=== PATIENT | female | born 1990 | race Caucasian/White ===

== ENCOUNTER 2018-02-21 10:47 | Outpatient (REF) | payer MEDICAID, SELFPAY ==
[2018-02-21 13:07] LABS: Anion Gap 11.8 mmol/L (3-11); BUN 13 mg/dL (7-18); CO2 25.2 mmol/L (21.0-32.0); CREATININE 0.83 mg/dL (0.55-1.02); Calcium 9.2 mg/dL (8.5-10.1); Chloride 105 mmol/L (98-107); Glucose 95 mg/dL (70-100); Potassium 5.1 mmol/L (3.5-5.1); Sodium 142 mmol/L (136-145)
== END 2018-02-21 11:07 ==
LOC: NCHCN 10:47
PROVIDERS: PCP Nurse Practitioner Family; Visit Provider Nurse Practitioner Family
DX: E87.1 Hypo-osmolality and hyponatremia (principal)
CPT/HCPCS: 80048

== ENCOUNTER 2019-10-31 15:23 | Outpatient (REF) | payer SELFPAY ==
[2019-11-07 03:23] LABS: SARS-CoV-2 RNA Undetected (Undetected); SARS-CoV-2 Specimen Source Nasopharynx
== END 2019-10-31 15:43 ==
LOC: NCHCN 15:23
PROVIDERS: PCP Nurse Practitioner Family; Visit Provider Nurse Practitioner Family
DX: Z20.828 Contact with and (suspected) exposure to other viral communicable diseases (principal)
CPT/HCPCS: U0003

== ENCOUNTER 2019-11-13 16:24 | Outpatient (REF) | payer SELFPAY ==
[2019-11-18 14:32] LABS: SARS-CoV-2 RNA Undetected (Undetected); SARS-CoV-2 Specimen Source Nasopharynx
== END 2019-11-13 16:44 ==
LOC: NCHCN 16:24
PROVIDERS: PCP Nurse Practitioner Family; Visit Provider Nurse Practitioner Family
DX: R50.9 Fever, unspecified (principal); Z11.59 Encounter for screening for other viral diseases
CPT/HCPCS: U0003

== ENCOUNTER 2019-11-23 15:59 | Outpatient (REF) | payer SELFPAY ==
[2019-11-23 16:30] LABS: HCT 37.8 % (36.0-46.0); HGB 12.3 g/dL (11.2-15.7); MCH 31.1 pg (27.0-33.0); MCHC 32.5 % (32.0-36.0); MCV 95.5 fL (80-95); MPV 9.6 fL (8.0-11.0); Platelet Count 333 10^3/uL (130-400); RBC 3.96 10^6/uL (3.93-5.22); RDW 12.1 % (11.7-14.6); RDW-SD 42.5 fL
[2019-11-23 16:43] LABS: ALT 34 U/L (14-59); AST 19 U/L (15-37); Albumin 4.1 g/dL (3.4-5.0); Alkaline Phosphatase 134 U/L (46-116); Anion Gap 9.3 mmol/L (3-11); BUN 9 mg/dL (7-18); Bilirubin, Total 0.3 mg/dL (0.2-1.0); CO2 28.7 mmol/L (21.0-32.0); CREATININE 0.72 mg/dL (0.55-1.02); Calcium 9.3 mg/dL (8.5-10.1); Chloride 102 mmol/L (98-107); Glucose 90 mg/dL (74-106); Potassium 4.2 mmol/L (3.5-5.1); Sodium 140 mmol/L (136-145); Total Protein 7.3 g/dL (6.4-8.2)
== END 2019-11-23 16:19 ==
LOC: NCHCN 15:59
PROVIDERS: PCP Nurse Practitioner Family; Visit Provider Physician Assistant
DX: R50.9 Fever, unspecified (principal)
CPT/HCPCS: 80053; 85027

== ENCOUNTER 2019-11-27 15:10 | Outpatient (REF) | payer SELFPAY ==
[2019-11-29 11:17] LABS: Lyme Ab w Rflx to Lyme Confirm Negative (Negative)
[2019-11-30 00:10] LABS: Anaplasma phagocytophilum Negative (Negative); B. miyamotoi PCR Negative (Negative); Babesia divergens/MO-1 Negative (Negative); Babesia duncani Negative (Negative); Babesia microti Negative (Negative); Ehrlichia chaffeensis Negative (Negative); Ehrlichia ewingii/canis Negative (Negative); Ehrlichia muris eauclairensis Negative (Negative)
== END 2019-11-27 15:30 ==
LOC: NCHCN 15:10
PROVIDERS: PCP Nurse Practitioner Family; Visit Provider Physician Assistant
DX: R53.83 Other fatigue (principal)
CPT/HCPCS: 87798; 86618

== ENCOUNTER 2020-02-28 09:36 | Outpatient (REF) | payer BC, SELFPAY ==
[2020-02-28 18:09] LABS: Calculated LDL 90 mg/dL (<100); Cholesterol 174 mg/dL (<200); HDL Cholesterol 71 mg/dL (40-60); Triglyceride 67 mg/dL (<150)
== END 2020-02-28 09:56 ==
LOC: NCHCN 09:36
PROVIDERS: PCP Nurse Practitioner Family; Visit Provider Nurse Practitioner
DX: R30.0 Dysuria (principal); Z13.89 Encounter for screening for other disorder
CPT/HCPCS: 80061; 87077; 87086; 87186

== ENCOUNTER 2020-08-11 20:40 | Outpatient (REF) | payer BC, SELFPAY | END 2020-08-11 20:41 | disposition home or self-care (01) | LOC: LBN 20:40 | PROVIDERS: PCP Nurse Practitioner Family; Visit Provider Nurse Practitioner Family | DX: N39.0 Urinary tract infection, site not specified (principal) | CPT/HCPCS: 87086 ==

== ENCOUNTER 2020-08-15 02:14 | Outpatient (CLI) | payer BC, SELFPAY ==
[2020-08-15 12:23] LABS: HCT 40.9 % (36.0-46.0); HGB 13.2 g/dL (11.2-15.7); MCH 31.3 pg (27.0-33.0); MCHC 32.3 % (32.0-36.0); MCV 96.9 fL (80-95); MPV 9.3 fL (8.0-11.0); Platelet Count 311 10^3/uL (130-400); RBC 4.22 10^6/uL (3.93-5.22); RDW 12.2 % (11.7-14.6); RDW-SD 43.6 fL
[2020-08-15 12:32] LABS: INR 0.9 (0.9-1.1)
[2020-08-15 13:09] LABS: ALT 30 U/L (14-59); AST 15 U/L (15-37); Albumin 3.9 g/dL (3.4-5.0); Alkaline Phosphatase 159 U/L (46-116); BUN 10 mg/dL (7-18); Bilirubin, Total 0.1 mg/dL (0.2-1.0); CREATININE 0.8 mg/dL (0.55-1.02); Calcium 9.4 mg/dL (8.5-10.1); Chloride 105 mmol/L (98-107); Glucose 103 mg/dL (74-106); Potassium 4.1 mmol/L (3.5-5.1); Sodium 142 mmol/L (136-145); Total Protein 7.1 g/dL (6.4-8.2)
== END 2020-08-15 02:15 | disposition home or self-care (01) ==
LOC: LBO 02:14
PROVIDERS: PCP Nurse Practitioner Family; Visit Provider Nurse Practitioner Family
DX: R00.0 Tachycardia, unspecified (principal); I49.9 Cardiac arrhythmia, unspecified
CPT/HCPCS: 36415; 80053; 85027; 85610

== ENCOUNTER 2020-08-15 12:26 | Outpatient (RCR) | payer BC, SELFPAY ==
--- NOTE | 2020-08-15 14:00 | HOLTER_ITS ---
APPROVED REPORT Exam Type: HOLTER MONITOR APPLICATION Reason for Test: paroxsymal tachycardia Patient Location: O Conclusion This is a 48-hour Holter monitor ordered for indication of tachycardia. The patient was in normal sinus rhythm for the majority of the recording with an average heart rate o f 100 bpm (57???150) There were no episodes of ventricular tachycardia nor any episodes of supraventricular tachycardia. There were 4 total PACs and no PVCs. There were no episodes of atrial fibrillation, no pauses greater than 3 seconds and no evidence of hi gh degree heart block. There were numerous patient recorded events all associated with sinus rhythm and sinus tachycardia.
== END 2020-08-22 23:59 | disposition home or self-care (01) ==
LOC: RT 12:26
PROVIDERS: PCP Nurse Practitioner Family; Visit Provider Nurse Practitioner Family
DX: R00.0 Tachycardia, unspecified (principal)
CPT/HCPCS: 93225; 93226

== ENCOUNTER 2022-01-22 10:40 | Outpatient (CLI) | payer SELFPAY ==
--- NOTE | 2022-01-22 09:45 | DI.RAD_ITS ---
Exam(s) XR LUMBAR SPINE COMPLETE EXAM: XR LUMBAR SPINE COMPLETE CLINICAL HISTORY: vertebral alignment M54.50 LOW BACK PAIN TECHNIQUE: COMPARISON: No exams were available for comparison FINDINGS: Five views were obtained. There is a minimal left convex thoracolumbar scoliosis which may be positi onal. The intervertebral disc spaces are well maintained. Minimal hypertrophic endplate changes are noted throughout the thoracic and lumbar spine. Facet joints appear well maintained as visualized. No evidence of spondylolysis or spondylolisthesis. No erosive or destructive lesion. IMPRESSION: Minimal degenerative endplate changes, no other significant findings. RADIATION DOSE DELIVERED: Total DLP
== END 2022-01-22 11:00 ==
LOC: DI 10:44
PROVIDERS: PCP Nurse Practitioner Family; Visit Provider Nurse Practitioner Family
DX: M47.814 Spondylosis without myelopathy or radiculopathy, thoracic region (principal)
CPT/HCPCS: 72110

== ENCOUNTER 2023-04-01 16:17 | Outpatient (REF) | payer BC, SELFPAY ==
[2023-04-01 20:56] LABS: *AMPHETAMINES SCREEN URINE Positive (Negative); *BARBITURATES SCREEN URINE Negative (Negative); *BENZODIAZEPINES SCREEN URINE Negative (Negative); Cannabinoids THC Negative (Negative); Cocaine Screen,Urine Negative (Negative); METHADONE URINE SCREEN Negative (Negative); OPIATES URINE SCREEN Positive (Negative)
[2023-04-01 21:00] LABS: Tricyclic Antidepressants Positive (Negative)
== END 2023-04-01 16:18 | disposition home or self-care (01) ==
LOC: LBN 16:17
PROVIDERS: PCP Nurse Practitioner Family; Visit Provider Nurse Practitioner Family
DX: F90.9 Attention-deficit hyperactivity disorder, unspecified type (principal)
CPT/HCPCS: 80307

== ENCOUNTER 2023-04-19 14:36 | Outpatient (CLI) | payer BC, SELFPAY ==
[2023-04-19 14:33] LABS: Hemoglobin A1C 5.6 % (<5.7)
[2023-04-19 14:50] LABS: ALT 35 U/L (14-59); AST 14 U/L (15-37); Alkaline Phosphatase 171 U/L (46-116); Anion Gap 7.3 mmol/L (3-11); BUN 10 mg/dL (7-18); Bilirubin, Total 0.1 mg/dL (0.2-1.0); CO2 27.7 mmol/L (21.0-32.0); CREATININE 0.8 mg/dL (0.55-1.02); Calcium 8.9 mg/dL (8.5-10.1); Calculated LDL 132 mg/dL (<100); Chloride 101 mmol/L (98-107); Cholesterol 225 mg/dL (<200); Estimated GFR 99.71 (mL/min/1.73m2); Glucose 100 mg/dL (74-106); HDL Cholesterol 66 mg/dL (40-60); Potassium 3.6 mmol/L (3.5-5.1); Sodium 136 mmol/L (136-145); Total Protein 7.7 g/dL (6.4-8.2); Triglyceride 135 mg/dL (<150)
[2023-04-19 15:00] LABS: *AMPHETAMINES SCREEN URINE Positive (Negative); *BARBITURATES SCREEN URINE Negative (Negative); *BENZODIAZEPINES SCREEN URINE Negative (Negative); Cannabinoids THC Negative (Negative); Cocaine Screen,Urine Negative (Negative); METHADONE URINE SCREEN Negative (Negative); OPIATES URINE SCREEN Negative (Negative)
[2023-04-19 15:01] LABS: Tricyclic Antidepressants Negative (Negative)
== END 2023-04-19 14:37 | disposition home or self-care (01) ==
LOC: LBO 14:36
PROVIDERS: PCP Nurse Practitioner Family; Visit Provider Nurse Practitioner Family
DX: Z00.00 Encounter for general adult medical examination without abnormal findings (principal); F90.8 Attention-deficit hyperactivity disorder, other type; F32.89 Other specified depressive episodes; Z79.899 Other long term (current) drug therapy; R79.89 Other specified abnormal findings of blood chemistry
CPT/HCPCS: 36415; 80053; 80061; 80307; 83036

== ENCOUNTER 2023-07-19 17:50 | Outpatient (REF) | payer OTHER, SELFPAY ==
[2023-07-19 20:29] LABS: Abs Immature Grans 0.01 10^3/uL (0.0-0.06); Absolute Basophil Count 0.04 10^3/uL (0.0-0.2); Absolute Eosinophil Count 0.06 10^3/uL (0.0-0.7); Absolute Lymphocyte Count 3.67 10^3/uL (1.2-3.4); Absolute Monocyte Count 0.44 10^3/uL (0.1-0.8); Absolute Neutrophil Count 2.72 10^3/uL (1.2-6.7); Basophils % 0.6; Eosinophils % 0.9; HCT 38.6 % (36.0-46.0); HGB 12.8 g/dL (11.2-15.7); Immature Grans % 0.1; Lymphocytes % 52.9; MCH 31.7 pg (27.0-33.0); MCHC 33.2 % (32.0-36.0); MCV 96 fL (80-95); MPV 9.6 fL (8.0-11.0); Monocytes % 6.3; Neutrophils % 39.2; Platelet Count 372 10^3/uL (130-400); RBC 4.04 10^6/uL (3.93-5.22); RDW 11.9 % (11.7-14.6); RDW-SD 42.1 fL; WBC 6.94 10^3/uL (4.4-10.8)
[2023-07-19 20:56] LABS: TSH (W/Ref FT4) 1.71 uIU/mL (0.36-3.74)
== END 2023-07-19 17:51 | disposition home or self-care (01) ==
LOC: LBN 17:50
PROVIDERS: PCP Nurse Practitioner Family; Visit Provider Nurse Practitioner Family
DX: E04.9 Nontoxic goiter, unspecified (principal)
CPT/HCPCS: 84443; 85025

== ENCOUNTER 2023-07-22 16:56 | Emergency (ER) | payer OTHER, SELFPAY ==
[2023-07-22 16:58] VITALS: BP 131/83; PULSE 116; RESP 18; TEMP 37; O2SAT 97
--- NOTE | 2023-07-22 17:30 | DI.CT_ITS ---
Exam(s) CT HEAD WO EXAM: CT HEAD WO CLINICAL HISTORY: worsening headache. TECHNIQUE: Imaging Protocol: Axial computed tomography images with coronal and sagittal reformatted images were created and reviewed COMPARISON: No exams were available for comparison FINDINGS: Ventricles and Extra axial spaces: Normal in size and morphology for the patient's age. Hemorrhage: None. Cerebral parenchyma: Normal. Midline shift: None. Brainstem/Cerebellum: Normal. Calvarium: Normal. Visualized Paranasal sinuses/Mastoids: Clear. Soft Tissues: Unremarkable. IMPRESSION: No acute intracranial process. RADIATION DOSE DELIVERED: Total DLP DATA REPOSITORY: All CT scans at this facility are submitted to the National Radiology Data Registry (NRDR) Dose Index Registry (DIR) with the [employer] (ACR). RADIATION OPTIMIZATION: All CT scans at this facility use at least one of these dose optimization te chniques: automated exposure control; mA and/or kV adjustment per patient size (includes targeted exa ms where dose is matched to clinical indication); or iterative reconstruction.
[2023-07-22 18:13] LABS: Abs Immature Grans 0.02 10^3/uL (0.0-0.06); Absolute Basophil Count 0.03 10^3/uL (0.0-0.2); Absolute Eosinophil Count 0.07 10^3/uL (0.0-0.7); Absolute Monocyte Count 0.64 10^3/uL (0.1-0.8); Absolute Neutrophil Count 5.66 10^3/uL (1.2-6.7); Basophils % 0.3; Eosinophils % 0.7; HCT 40.5 % (36.0-46.0); HGB 13.1 g/dL (11.2-15.7); Immature Grans % 0.2; MCH 31.5 pg (27.0-33.0); MCHC 32.3 % (32.0-36.0); MCV 97 fL (80-95); MPV 9.2 fL (8.0-11.0); Monocytes % 6.6; Neutrophils % 58.2; Platelet Count 355 10^3/uL (130-400); RBC 4.16 10^6/uL (3.93-5.22); RDW 11.8 % (11.7-14.6); RDW-SD 42.5 fL; WBC 9.72 10^3/uL (4.4-10.8)
[2023-07-22] MEDS: Dexamethasone 10 MG/ML VIAL IM (18:26)
[2023-07-22] MEDS: Prochlorperazine 10 MG/2 ML VIAL IM (18:26)
[2023-07-22 18:28] LABS: Bilirubin Negative (Negative); Blood Negative (Negative); Clarity Cloudy (Clear); Glucose Negative (Negative); Ketones Negative (Negative); Leukocyte Esterase Moderate (Negative); Nitrite Negative (Negative); Specific Gravity 1.025 (1.005-1.025); Urobilinogen 0.2 mg/dL (Up to 0.2)
[2023-07-22 18:28] LABS: ALT 40 U/L (14-59); AST 15 U/L (15-37); Alkaline Phosphatase 150 U/L (46-116); Anion Gap 9.6 mmol/L (3-11); BUN 12 mg/dL (7-18); Bilirubin, Total 0.2 mg/dL (0.2-1.0); CO2 27.4 mmol/L (21.0-32.0); CREATININE 0.7 mg/dL (0.55-1.02); Calcium 9.1 mg/dL (8.5-10.1); Chloride 106 mmol/L (98-107); Estimated GFR 117.04 (mL/min/1.73m2); Glucose 103 mg/dL (74-106); Potassium 4.5 mmol/L (3.5-5.1); Sodium 143 mmol/L (136-145); Total Protein 7.5 g/dL (6.4-8.2)
[2023-07-22 18:31] VITALS: BP 131/83; PULSE 116; RESP 18; TEMP 37; O2SAT 97
[2023-07-22 18:35] LABS: Bacteria Moderate HPF (Negative); Casts Negative LPF (Negative); Crystals Negative HPF (Negative); Epithelial Cells Moderate HPF (Negative); Mucus Moderate (Negative); RBC Negative HPF (0-2)
[2023-07-22 18:36] LABS: C & S Indicated? No/Sq. Contamination
[2023-07-22 18:49] LABS: COVID-19 PCR Negative (Negative); Influenza A PCR Negative (Negative); Influenza B PCR Negative (Negative); RSV PCR Negative (Negative); Source Nasopharynx
[2023-07-22] MEDS: SUMAtriptan 6 MG/0.5 ML VIAL SC (19:44)
--- NOTE | 2023-07-22 19:47 | DI.VRAD_ITS ---
PROCEDURE INFORMATION: Exam: CT Head Without Contrast Exam date and time: 07/22/2023 7:15 PM Age: 33 years old Clinical indication: Pain; Headache; Additional info: Worsening headache TECHNIQUE: Imaging protocol: Computed tomography of the head without contrast. COMPARISON: No relevant prior studies available. FINDINGS: Brain: Normal. No hemorrhage. Unremarkable white matter. No mass effect. Cerebral ventricles: No ventriculomegaly. Paranasal sinuses: Visualized sinuses are unremarkable. No fluid levels. Mastoid air cells: Visualized mastoid air cells are well aerated. Bones/joints: Unremarkable. No acute fracture. Soft tissues: Unremarkable. IMPRESSION: No evidence for acute intracranial abnormality. Dictated and Authenticated by: Shea Ruby MD. Ordering:CHAD Agarwal MD
--- NOTE | 2023-07-22 20:14 | ED.GENADUL_ITS ---
Discharge Plan Disposition Patient Disposition: Home Condition: Stable Discharge Details Clinical Impression: Headache Primary Care Provider: Rosalina Concepcion ED Provider: Any Neri Home Meds and New Rx's Prescriptions: New sumatriptan succinate [Imitrex] 25 mg tablet 25 mg PO ONCE Qty: 7 0RF Rx Instructions: may repeat once after at least 2 hours metoclopramide HCl [Reglan] 10 mg tablet 10 mg PO Q6H PRNQty: 10 0RF Continued lidocaine 4 % adhesive patch,medicated 1 patch topical DAILY PRN (Reason: pain) Qty: 30 0RF Rx Instructions: Apply 1 patch daily as directed to lower back caffine 200 mg PO .Q6 Patient Comments: For narcolepsy. lamotrigine 150 mg tablet 300 mg PO DAILY Qty: 180 3RF armodafinil 50 mg tablet 50 mg PO QAM ascorbic acid (vitamin C) 500 mg capsule PO cholecalciferol (vitamin D3) 125 mcg (5,000 unit) capsule 125 mcg PO DAILY mometasone 50 mcg/actuation spray,non-aerosol 2 spray intranasal DAILY PRN (Reason: allergy symptoms) Qty: 17 0RF Rx Instructions: administer into each nostril cyclobenzaprine 5 mg tablet 5 mg PO TID PRN (Reason: muscle spasm) Qty: 14 0RF Unisom (doxylamine) 25 mg tablet 25 mg PO QHS PRN fexofenadine [Allergy Relief (fexofenadine)] 180 mg tablet 180 mg PO DAILY diphenhydramine HCl [Benadryl] 25 mg capsule 25 mg PO QHS PRN (Reason: sleep) albuterol sulfate 90 mcg/actuation HFA aerosol inhaler 2 inh inhalation Q6H PRN (Reason: shortness of breath or wheezing) Qty: 18 4RF cetirizine [Zyrtec] 10 mg tablet 10 mg PO DAILY cyclobenzaprine 5 mg tablet 5 mg PO TID PRN (Reason: back pain) Qty: 14 0RF Rx Instructions: Take 1 tablet by mouth three times a day as needed for back pain dextroamphetamine-amphetamine [Adderall] 7.5 mg tablet 7.5 mg PO DAILY MDD 52.5mg PRN (Reason: narcolepsy) Qty: 28 0RF Rx Instructions: Take 7.5mg in the late afternoon if needed for narcolepsy dextroamphetamine-amphetamine 15 mg tablet 15 mg PO TID MDD 52.5 Qty: 84 0RF Rx Instructions: 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, 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, 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 armodafinil 50 mg tablet 50 mg PO DAILY Discharge Instructions Instructions: General Headache (ED) Additional Instructions: Today you received Decadron, a steroid, Compazine injection for your headache and nausea, and Imitrex injection for your headache Your labs and CAT scans are reassuring You may take the Imitrex at home, do not exceed 2 doses in 24 hours You may also take another dose of the Reglan as needed for nausea and headache Please follow-up with your primary care physician this week and return earlier should you have new or worsening complaints Stand Alone Forms: Work Release Referrals: Rosalina Concepcion NP [Primary Care Provider] - Discharge Data Discharge Date/Time-TO BE ENTERED AT DEPARTURE: 07/22/23 20:26 HPI General Date/Time Provider Initiated Documentation: 07/22/23 17:11 . HPI Narrative: This 33-year-old female with history of narcolepsy, Asperger's presents with headache for the past 3 days. This states she is sound and light sensitive. Denies any stiff neck or fever. Denies any chance of or head trauma. Denies any vision change. Denies any chest pain or shortness of breath. Denies history of headaches in the past. Denies any strength or sensation change. States she feels foggy . Related Data Home Medications Medication Instructions Recorded Confirmed ascorbic acid (vitamin C) 500 mg mg PO 08/11/20 07/22/23 capsule cholecalciferol (vitamin D3) 125 125 mcg PO DAILY 08/11/20 07/22/23 mcg (5,000 unit) capsule doxylamine succinate 25 mg tablet 25 mg PO QHS PRN 08/13/20 07/22/23 (Unisom (doxylamine)) fexofenadine 180 mg tablet 180 mg PO DAILY 08/13/20 07/22/23 (Allergy Relief (fexofenadine)) diphenhydramine HCl 25 mg capsule 25 mg PO QHS PRN sleep 09/18/20 07/22/23 (Benadryl) albuterol sulfate 90 mcg/actuation 2 inh inhalation Q6H PRN shortness 12/24/20 07/22/23 aerosol inhaler of breath or wheezing #18 grams lidocaine 4 % topical patch 1 patch topical DAILY PRN pain #30 01/22/22 07/22/23 ea caffine 200 mg PO .Q6 02/05/22 07/22/23 cetirizine 10 mg tablet (Zyrtec) 10 mg PO DAILY 04/26/22 07/22/23 mometasone 50 mcg/actuation nasal 2 spray intranasal DAILY PRN 06/28/22 07/22/23 spray allergy symptoms #17 grams lamotrigine 150 mg tablet 300 mg (2 x 150 mg) PO DAILY #180 04/01/23 07/22/23 tabs cyclobenzaprine 5 mg tablet 5 mg PO TID PRN back pain #14 tabs 05/03/23 07/22/23 armodafinil 50 mg tablet 50 mg PO DAILY 07/04/23 07/22/23 dextroamphetamine-amphetamine 15 15 mg PO TID #84 tabs 07/04/23 07/22/23 mg tablet dextroamphetamine-amphetamine 7.5 7.5 mg PO DAILY PRN narcolepsy #28 07/04/23 07/22/23 mg tablet (Adderall) tabs armodafinil 50 mg tablet 50 mg PO QAM 07/19/23 07/22/23 cyclobenzaprine 5 mg tablet 5 mg PO TID PRN muscle spasm #14 07/22/23 07/22/23 tabs metoclopramide HCl 10 mg tablet 10 mg PO Q6H PRN #10 tabs 07/22/23 (Reglan) sumatriptan succinate 25 mg tablet 25 mg PO ONCE #7 tabs 07/22/23 (Imitrex) Previous Rx's Medication Instructions Recorded albuterol sulfate 90 mcg/actuation 2 inh inhalation Q6H PRN shortness 12/24/20 aerosol inhaler of breath or wheezing #18 grams lidocaine 4 % topical patch 1 patch topical DAILY PRN pain #30 01/22/22 ea mometasone 50 mcg/actuation nasal 2 spray intranasal DAILY PRN 06/28/22 spray allergy symptoms #17 grams lamotrigine 150 mg tablet 300 mg (2 x 150 mg) PO DAILY #180 04/01/23 tabs cyclobenzaprine 5 mg tablet 5 mg PO TID PRN back pain #14 tabs 05/03/23 dextroamphetamine-amphetamine 15 15 mg PO TID #84 tabs 07/04/23 mg tablet dextroamphetamine-amphetamine 7.5 7.5 mg PO DAILY PRN narcolepsy #28 07/04/23 mg tablet (Adderall) tabs cyclobenzaprine 5 mg tablet 5 mg PO TID PRN muscle spasm #14 07/22/23 tabs metoclopramide HCl 10 mg tablet 10 mg PO Q6H PRN #10 tabs 07/22/23 (Reglan) sumatriptan succinate 25 mg tablet 25 mg PO ONCE #7 tabs 07/22/23 (Imitrex) Allergies Allergy/AdvReac Type Severity Reaction Status Date / Time Cephalosporins Allergy Intermediate Hives Verified 07/22/23 17:07 milk Allergy Nausea Verified 07/22/23 17:07 gluten AdvReac Severe Headache Verified 07/22/23 17:07 Moderna vaccine AdvReac Severe Swelling/Ed Uncoded 07/22/23 17:07 gabe General Stated Complaint: Headache HARSH: 3 Course Vital Signs Vital signs: Vital Signs Temperature 37.0 C 07/22/23 16:58 Pulse 116 H 07/22/23 16:58 Respiratory Rate 18 07/22/23 16:58 Blood Pressure 131/83 07/22/23 16:58 Pulse Oximetry 97 07/22/23 16:58 Temperature 37.0 C 07/22/23 18:31 Temperature Source Tympanic 07/22/23 18:31 Pulse 116 H 07/22/23 18:31 Respiratory Rate 18 07/22/23 18:31 Respiratory Effort Normal 07/22/23 17:05 Blood Pressure 131/83 07/22/23 18:31 Blood Pressure Position Sitting 07/22/23 18:31 Pulse Oximetry 97 07/22/23 18:31 Oxygen Delivery Method Room Air 07/22/23 18:31 Oxygen Flow Rate 0 07/22/23 16:58 Lab/Test Results Lab/Test Results: Laboratory Tests Range/Units 07/22/23 07/22/23 07/22/23 15:00 18:00 18:20 WBC (4.4-10.8) 10^3/uL 9.72 RBC (3.93-5.22) 10^6/uL 4.16 Hgb (11.2-15.7) g/dL 13.1 Hct (36.0-46.0) % 40.5 MCV (80-95) fL 97 H MCH (27.0-33.0) pg 31.5 MCHC (32.0-36.0) % 32.3 RDW (11.7-14.6) % 11.8 Plt Count (130-400) 10^3/uL 355 MPV (8.0-11.0) fL 9.2 Immature Gran % 0.2 Neutrophils % 58.2 Lymphocytes % 34.0 Monocytes % 6.6 Eosinophils % 0.7 Basophils % 0.3 Nucleated RBC % (0.0-0.3) % 0.0 Absolute Neutrophils (1.2-6.7) 10^3/uL 5.66 Absolute Lymphocytes (1.2-3.4) 10^3/uL 3.30 Absolute Monocytes (0.1-0.8) 10^3/uL 0.64 Absolute Eosinophils (0.0-0.7) 10^3/uL 0.07 Absolute Basophils (0.0-0.2) 10^3/uL 0.03 Sodium (136-145) mmol/L 143 Potassium (3.5-5.1) mmol/L 4.5 Chloride (98-107) mmol/L 106 Carbon Dioxide (21.0-32.0) mmol/L 27.4 Anion Gap (3-11) mmol/L 9.6 BUN (7-18) mg/dL 12 Creatinine (0.55-1.02) mg/dL 0.7 Est GFR (CKD-EPI 2020) (mL/min/1.73m2) 117.04 Glucose (74-106) mg/dL 103 Calcium (8.5-10.1) mg/dL 9.1 Magnesium (1.8-2.4) mg/dL 2.0 Total Bilirubin (0.2-1.0) mg/dL 0.2 AST (15-37) U/L 15 ALT (14-59) U/L 40 Alkaline Phosphatase (46-116) U/L 150 H Total Protein (6.4-8.2) g/dL 7.5 Albumin (3.4-5.0) g/dL 4.0 Urine Color (Yellow) Yellow Urine Clarity (Clear) Cloudy Urine pH (5-8) 6.0 Ur Specific [place] (1.005-1.025) 1.025 Urine Protein (Neg-Trace) mg/dL Negative Urine Ketones (Negative) mg/dL Negative Urine Blood (Negative) Negative Urine Nitrite (Negative) Negative Urine Bilirubin (Negative) Negative Urine Urobilinogen (Up to 0.2) mg/dL 0.2 Ur Leukocyte Esterase (Negative) Moderate H Urine RBC (0-2) HPF Negative Urine WBC (0-5) HPF 5-10 Ur Epithelial Cells (Negative) HPF Moderate Urine Crystals (Negative) HPF Negative Urine Bacteria (Negative) HPF Moderate Urine Casts (Negative) LPF Negative Urine Mucus (Negative) Moderate Ur Culture Indicated? No/Sq. Contamination Urine Glucose (Negative) mg/dL Negative COVID-19 Source Nasopharynx SARS-CoV-2 (PCR) (Negative) Negative Influenza Type A (PCR) (Negative) Negative Influenza Type B (PCR) (Negative) Negative RSV (PCR) (Negative) Negative POC- Test(urine) Negative Medical Decision Making This 33-year-old female presents with headache for the past 3 days Given the persistence of headache and relatively new onset CT was ordered for evaluation which does not show evidence of acute abnormality per radiology interpretation my review Diagnostic labs do not show significant acute abnormality Patient is alert and oriented, cranial nerves II through intact, ambulatory steady gait, negative [id number], negative heel zamora, extraocular muscles intact, pupils equal round reactive to light and accommodation, no meningismus, no maxillary tenderness, no ethmoid tenderness, lungs clear to auscultation bilaterally, cardiac rate rhythm regular No acute distress Patient received Compazine IM, Decadron IM as patient refused IV access She had persistent headache so Imitrex subcu was administered and she had alleviation of symptoms and is feeling improvement She is requesting discharge home I did encourage her to follow-up closely with her primary care physician Return precautions reviewed and patient expressed understanding Quality:SDOH Health Related Social Needs: No Data to Display PFSH All Active Problems (Updated 07/22/23 @ 20:15 by KALEB Vaughan) Headache (Acute) Narcolepsy (Chronic) Major depressive disorder, recurrent (Chronic) ADHD (Chronic) Aspergers' syndrome (Chronic) Insomnia (Chronic) Asthma, mild intermittent (Chronic) Low back pain (Acute) Allergic rhinitis (Chronic) Nicotine dependence (Chronic) Medical History Infectious mononucleosis Angioneurotic edema Idiopathic urticaria Pulmonary eosinophilia Surgical History History of laryngoscopy (09/26/17) H/O endoscopy Fiberoptic nasal History of appendectomy (~2000) Family History Mother Depression Prediabetes Father Heart disease Hyperlipidemia Hypertension Myocardial infarction Sister Depression Sister Depression Hyperlipidemia Aspergers' syndrome Substance abuse Maternal Grandfather , 80's Stroke Parkinson's disease Maternal Grandmother Depression Glaucoma Paternal Grandfather , 98 Stroke Paternal Grandmother , 91 Stroke Social History Smoking/Tobacco Use Status: Current every day Tobacco Type: e-cigarettes Tobacco: How many years used: 5 Quit status: has quit before Second Hand Exposure: Yes Smoking risk assessment performed?: Yes Alcohol Intake: former Drug use: Current Sobriety Substance use type: marijuana and hallucinogens Adopted: No Caregiver/Support person: No Foster care: No Household members: significant other and other Details: significant other's sister, brother in law, and their child Housing: house Do you think of yourself as: lesbian/kenney/homosexual Current gender identity: neither exclusively male nor female What is your relationship status?: living with partner Panel score (0-1 are the most socially isolated patients): 1 What type of physical activity do you participate in: none Shantel/Anabaptist: No preference History History 0 Para Hx # Term Pregnancies Multiple births Hx # Pregnancies Ectopic pregnancies AB induced Hx Number of Living Children AB spontaneous
[2023-07-22 20:26] VITALS: BP 120/73; PULSE 83; RESP 16; TEMP 37; O2SAT 97
== END 2023-07-22 20:26 | disposition home or self-care (01) ==
PROVIDERS: Emergency Provider Physician Assistant; PCP Nurse Practitioner Family
DX: R51.9 Headache, unspecified (principal); F17.290 Nicotine dependence, other tobacco product, uncomplicated; Z11.52 Encounter for screening for COVID-19
CPT/HCPCS: 80053; 87637; 96372; 99283; 70450; 81003; 81015; 83735; 85025; J0780; J1100; J3030

== ENCOUNTER 2023-12-29 10:47 | Outpatient (CLI) | payer OTHER, SELFPAY ==
[2023-12-30 08:05] LABS: Lyme Ab w Rflx to Lyme Confirm Negative (Negative)
[2024-01-01 13:54] LABS: Anaplasma phagocytophilum Negative (Negative); B. miyamotoi PCR Negative (Negative); Babesia divergens/MO-1 Negative (Negative); Babesia duncani Negative (Negative); Babesia microti Negative (Negative); Ehrlichia chaffeensis Negative (Negative); Ehrlichia ewingii/canis Negative (Negative); Ehrlichia muris eauclairensis Negative (Negative)
== END 2023-12-29 10:48 | disposition home or self-care (01) ==
LOC: LBO 10:48
PROVIDERS: PCP Nurse Practitioner Family; Visit Provider Nurse Practitioner Family
DX: R53.83 Other fatigue (principal)
CPT/HCPCS: 36415; 87798; 86618

== ENCOUNTER 2024-05-24 18:36 | Outpatient (REF) | payer OTHER, SELFPAY ==
--- NOTE | 2024-05-24 14:15 | PAPFT_PTH ---
PATIENT: Christel Gamble LOC: [facility] U#:[id number] AGE/SX: 34/F ROOM: RE05/24/[address]: IVY Le : 1990 BED: DIS: 05/24/2024 SPEC #: [id number] RECD: 05/25/24 12:22 STATUS: MICHAEL MOTLEY #: [id number] CHIQUIS: 05/24/24 14:[address]: Rosalina Concepcion DEPT: [facility] Cytology RECD BY: Any Arias Tissues: 1 - CX/ENDOCX FOR PAP SMEARS Procedures: PAP THIN PREP/UVM Screening HPV DNA PROBE Comments: [id number] (HPV 16 & 18/45) (CHLAMYDIA/GC)
[2024-05-28 12:06] LABS: Chlamydia Result Negative (Negative); GC Result Negative (Negative)
== END 2024-05-24 18:37 | disposition home or self-care (01) ==
LOC: LBN 18:36
PROVIDERS: PCP Nurse Practitioner Family; Visit Provider Nurse Practitioner Family
DX: Z11.51 Encounter for screening for human papillomavirus (HPV) (principal); Z01.419 Encounter for gynecological examination (general) (routine) without abnormal findings; R87.619 Unspecified abnormal cytological findings in specimens from cervix uteri; Z11.3 Encounter for screening for infections with a predominantly sexual mode of transmission
CPT/HCPCS: 87491; 87591; 88142; 87624

== ENCOUNTER 2024-10-31 15:26 | Emergency (ER) | payer OTHER, SELFPAY ==
[2024-10-31] VITALS (46 sets, daily range): BP systolic 97–122; BP diastolic 57–83; PULSE 86–116; RESP 12–29; TEMP 36.6; O2SAT 95–100
--- NOTE | 2024-10-31 15:30 | RT.EKG_ITS ---
APPROVED REPORT Exam: Resting ECG Reason for Exam: dizziness, near syncope Patient Location: E HR:103 bpm ECG Measurements Heart Rate 103 AXIS AZ 135 P 64 QRSd 83 QRS 69 QT 343 T 70 QTc 449 Conclusion Sinus tachycardia...rate> 99
[2024-10-31 15:57] LABS: Abs Immature Grans 0.04 10^3/uL (0.0-0.06); HCT 42.5 % (36.0-46.0); HGB 14.0 g/dL (11.2-15.7); Immature Grans % 0.3 %; MCH 30.9 pg (27.0-33.0); MCHC 32.9 % (32.0-36.0); MCV 94 fL (80-95); MPV 8.9 fL (8.0-11.0); Platelet Count 310 10^3/uL (130-400); RBC 4.53 10^6/uL (3.93-5.22); RDW 11.9 % (11.7-14.6); RDW-SD 41.0 fL; WBC 12.66 10^3/uL (4.4-10.8)
[2024-10-31 16:12] LABS: ALT 39 U/L (14-59); AST 19 U/L (15-37); Albumin 4.5 g/dL (3.4-5.0); Alkaline Phosphatase 194 U/L (46-116); Anion Gap 12.0 mmol/L (3-11); BUN 14 mg/dL (7-18); Bilirubin, Total 0.4 mg/dL (0.2-1.0); CO2 25.0 mmol/L (21.0-32.0); Calcium 9.6 mg/dL (8.5-10.1); Chloride 102 mmol/L (98-107); Estimated GFR 86.03 (mL/min/1.73m2); Glucose 134 mg/dL (74-106); Magnesium 2.3 mg/dL (1.8-2.4); Potassium 4.1 mmol/L (3.5-5.1); Sodium 139 mmol/L (136-145); Total Protein 8.1 g/dL (6.4-8.2)
--- NOTE | 2024-10-31 16:12 | DI.CT_ITS ---
Exam(s) CT ABDOMEN PELVIS CTA EXAM: CT ABDOMEN PELVIS CTA CLINICAL HISTORY: abdominal pain with bloody stool. TECHNIQUE: Imaging Protocol: Axial computed tomography images with coronal and sagittal reformatted images were created and reviewed CONTRAST MATERIAL: Intravenous: Omnipaque 350 Contrast volume:100 ml Oral: None COMPARISON: No exams were available for comparison FINDINGS: Visualized lung bases are clear. No infiltrates nor pleural effusions nor nodules in the visualized lung bases. ABDOMEN: There is no evidence of abdominal aortic aneurysm nor dissection.There is no aneurysmal dilatation of the common iliac arteries.The celiac and superior mesenteric arteries are patent.Inferior mesenteric artery is patent. There no abnormal prominent meandering mesenteric collateral vessels. There is no intraluminal contrast extravasation to identify culprit location for GI bleed. There is no ascites. LIVER: There are no focal hepatic lesions nor dilatation of intrahepatic ducts. GALLBLADDER/BILIARY: No obvious gallbladder pathology. CBD is not dilated. PANCREAS: zz SPLEEN: Spleen is not enlarged. There are no intrasplenic lesions. Splenic and portal veins are patent. ADRENALS: There are no significant adrenal masses. KIDNEYS: No cysts evident. No calculi nor hydronephrosis. No solid renal masses. ABDOMINAL AORTA: The abdominal aorta is not enlarged. LYMPH NODES: There is no retroperitoneal nor para-aortic adenopathy. No obvious mesenteric masses. ABDOMINAL WALL: No evidence of significant anterior abdominal wall hernia. GI: There is no evidence of small bowel obstruction, free air, nor abscess.However, the large bowel wall appears circumferentially thickened at and distal to the hepatic flexure of the colon. This is consistent with a colitis pattern PELVIS: LYMPH NODES: There is no intrapelvic nor inguinal adenopathy. GI: No evidence of appendicitis.No evidence of sigmoid diverticulitis. URINARY BLADDER: No calculi nor masses evident REPRODUCTIVE: Uterus and adnexal regions-ovaries appear age appropriate. There are no extraovarian adnexal masses and there is no free fluid in the pelvis. OSSEOUS: No significant osseous lesions. No fractures. IMPRESSION: 1. There is a colitis pattern involving the transverse colon left side of the colon. Report called by myself to ER provider 10/31/2024 at 5:08 p.m. RADIATION DOSE DELIVERED: 1,880.92mGy.cm Total DLP DATA REPOSITORY: All CT scans at this facility are submitted to the National Radiology Data Registry (NRDR) Dose Index Registry (DIR) with the [employer] ([employer]). RADIATION OPTIMIZATION: All CT scans at this facility use at least one of these dose optimization techniques: automated exposure control; mA and/or kV adjustment per patient size (includes targeted exams where dose is matched to clinical indication); or iterative reconstruction.
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
[2024-10-31] MEDS: Omnipaque 350 MG/ML 100 ML BTL IJ (16:37)
[2024-10-31] MEDS: Normal Saline - Diluent 50 ML VIAL IJ (16:38)
[2024-10-31] MEDS: ACETAMINOPHEN 1,000 MG/100 ML BAG 400 MG IVPB (17:06)
[2024-10-31] MEDS: Ondansetron 4 MG/2 ML VIAL IVP (17:06)
[2024-10-31] MEDS: Normal Saline 1,000 ML 1000 ML IV (17:06)
[2024-10-31 18:53] LABS: Glucose Negative (Negative)
[2024-10-31 18:58] LABS: Abs Immature Grans 0.06 10^3/uL (0.0-0.06); HCT 38.3 % (36.0-46.0); HGB 12.7 g/dL (11.2-15.7); Immature Grans % 0.4 %; MCH 31.4 pg (27.0-33.0); MCHC 33.2 % (32.0-36.0); MCV 95 fL (80-95); MPV 8.9 fL (8.0-11.0); Platelet Count 284 10^3/uL (130-400); RBC 4.05 10^6/uL (3.93-5.22); RDW 11.9 % (11.7-14.6); RDW-SD 41.8 fL; WBC 13.87 10^3/uL (4.4-10.8)
[2024-10-31] MEDS: Sulfameth/Trimeth DS TAB 1 TAB PO (19:26)
[2024-10-31] MEDS: Ketorolac 15 MG/ML VIAL IVP (19:26)
[2024-10-31] MEDS: Sulfameth/Trimeth DS, 2 TABS/BTL 1 TAB PO (19:26)
[2024-10-31] MEDS: predniSONE 20 MG TAB 40 MG PO (19:58)
[2024-11-01 20:29] LABS: Campylobacter PCR Negative (Negative); Shiga Toxin PCR Negative (Negative); Shigella/Enteroinvasive Ecoli Negative (Negative)
--- NOTE | 2024-11-07 14:14 | NUR.NOTE ---
Nursing Note: Received call from patient requesting a work note to cover her from her ED visit on October 31 until her PCP follow up on November 02. Work note printed and left at the ER registration desk for patient to corn picker
== END 2024-10-31 20:42 | disposition home or self-care (01) ==
PROVIDERS: Emergency Provider Nurse Practitioner Family; PCP Nurse Practitioner Family
DX: R55 Syncope and collapse (principal); K62.5 Hemorrhage of anus and rectum; K52.9 Noninfective gastroenteritis and colitis, unspecified; R10.33 Periumbilical pain; R11.0 Nausea; Z60.8 Other problems related to social environment
CPT/HCPCS: 99284; 99285; 96375; 36415; 80053; 87505; 93005; 96361; 96365; 74174; 81003; 83605; 83630; 83735; 85025; 93010; J0131; J1885; J2405; J3490; J7512

== ENCOUNTER 2024-12-27 06:15 | Day surgery (SDC) | payer OTHER, SELFPAY ==
[2024-12-27 06:28] VITALS: BP 120/81; PULSE 109; RESP 20; TEMP 36.3; O2SAT 96
[2024-12-27] MEDS: Lactated Ringers 1,000 ML 80 ML IV (07:05)
--- NOTE | 2024-12-27 07:22 | W.ANESPRE ---
General Info Date of Service Date Performed: 12/27/24 Height: 5 ft 3 in Weight: 76.7 kg Body Mass Index (BMI): 29.9 Surgical Procedure: Operation Date: 12/27/24 07:35 Proposed Procedure Side Surgeon p Colonoscopy w/Biopsy Daphney Donnelly MD Meds Allergies and Home Medications Allergies Allergy/AdvReac Type Severity Reaction Status Date / Time Cephalosporins Allergy Intermediate Hives Verified 12/27/24 06:37 milk Allergy Nausea Verified 12/27/24 06:37 gluten AdvReac Severe Headache Verified 12/27/24 06:37 Moderna vaccine AdvReac Severe Swelling/Ed Uncoded 12/27/24 06:37 gabe Home Medication ?Medication ?Instructions ?Recorded ascorbic acid (vitamin C) 500 mg 500 mg PO DAILY 08/11/20 capsule doxylamine succinate 25 mg tablet 25 mg PO QHS PRN 08/13/20 (Unisom (doxylamine)) fexofenadine 180 mg tablet 180 mg PO DAILY 08/13/20 (Allergy Relief (fexofenadine)) diphenhydramine HCl 25 mg capsule 25 mg PO QHS PRN sleep 09/18/20 (Benadryl) lidocaine 4 % topical patch 1 patch topical DAILY PRN pain #30 01/22/22 ea caffine 200 mg PO .Q6 02/05/22 cetirizine 10 mg tablet (Zyrtec) 10 mg PO DAILY 04/26/22 cyclobenzaprine 5 mg tablet 5 mg PO TID PRN muscle spasm #14 07/22/23 tabs sumatriptan succinate 50 mg tablet 50 mg PO ONCE PRN migraine 07/25/23 headache #30 tabs cholecalciferol (vitamin D3) 25 25 mcg PO DAILY 08/24/23 mcg (1,000 unit) capsule lamotrigine 150 mg tablet 300 mg (2 x 150 mg) PO DAILY #180 05/22/24 tabs armodafinil 200 mg tablet 100 mg PO BID 05/24/24 dextroamphetamine-amphetamine 15 15 mg PO TID 05/24/24 mg tablet (Adderall) dextroamphetamine-amphetamine 7.5 7.5 mg PO DAILY PRN 05/24/24 mg tablet (Adderall) ondansetron HCl 8 mg tablet 8 mg PO TID PRN nausea and 05/24/24 vomiting #60 tabs prazosin 1 mg capsule 1 mg PO QHS 05/24/24 albuterol sulfate 90 mcg/actuation 2 puff inhalation Q6H PRN 06/12/24 aerosol inhaler shortness of breath or wheezing #8.5 grams polyethylene glycol 3350 17 8.5 g PO DAILY PRN 11/30/24 gram/dose oral powder (Miralax) lorazepam 0.5 mg tablet 0.5 mg PO DIRECTED PRN 12/25/24 magnesium gluconate 27 mg 27 mg PO DAILY 12/25/24 magnesium (500 mg) tablet acetaminophen 325 mg capsule 325 mg PO ONCE PRN 12/27/24 Current Visit Medications: Current Medications Generic Name Dose Route Start Last Admin Trade Name Freq PRN Reason Stop Dose Admin Ringer's Solution 1,000 mls @ 80 mls/hr 12/27/24 06:00 12/27/24 07:05 IV 12/27/24 23:59 80 mls/hr INFUSION TIM Administration IV Miscellaneous Supplies 1 each 12/27/24 06:00 Iv Access IV 12/27/24 23:59 DIRECTED TIM Sodium Biphosphate/Sodium Phosphate 133 - 266 ml 12/26/24 14:12 Na Phosphate Enema-Adult 133 Ml Btl ME 01/25/25 14:11 PRN PRN Sodium Chloride 0 ml 12/27/24 06:00 Normal Saline Flush 10 Ml Syr IV 12/27/24 23:59 PRN PRN Sodium Chloride 0 ml 12/27/24 06:00 Normal Saline 10 Ml Vial IJ 12/27/24 23:59 DIRECTED PRN Sterile Water 0 ml 12/27/24 06:00 Water,Injection,Sterile 10 Ml Vial IJ 12/27/24 23:59 DIRECTED PRN PFSH Active Problems Active Problems: Problem Status Onset Code Chronic abdominal pain Acute R10.9, G89.29 Narcolepsy Chronic G47.419 Major depressive disorder, recurrent Chronic F33.9 ADHD Chronic F90.9 Aspergers' syndrome Chronic F84.5 Insomnia Chronic G47.00 Asthma, mild intermittent Chronic J45.20 Low back pain Acute M54.50 Allergic rhinitis Chronic J30.9 Nicotine dependence Chronic F17.200 Migraine headache Chronic G43.909 Medical History Medical History (Updated 12/27/24 @ 06:39 by Mariann Barney) Enlarged thyroid Thyroid appears enlarged but saw endocrinology and had thyroid US which was normal Infectious mononucleosis Angioneurotic edema Idiopathic urticaria pt. states this is anaphylaxis Pulmonary eosinophilia Surgical History Surgical History (Updated 12/27/24 @ 06:38 by Mariann Barney) History of laryngoscopy (09/26/17) pt. denies H/O endoscopy Fiberoptic nasal History of appendectomy (~2000) Tobacco Smoking/Tobacco Use Status: Current every day Tobacco Type: e-cigarettes Passive smoking exposure: Yes Second hand exposure: Yes Alcohol Alcohol Intake: former Substance Use Substance use: Rarely Substance use type: former substance user, marijuana and hallucinogens Details: marijuana: 1 year Prental History History 0 Para Hx # Term Pregnancies Multiple births Hx # Pregnancies Ectopic pregnancies AB induced Hx Number of Living Children AB spontaneous Vital Signs and Lab Results Vital Signs Most Recent Vital Signs in EMR: Most Recent Vital Signs Temp Pulse Resp BP Pulse Ox 36.3 C L 109 H 20 120/81 96 12/27/24 06:28 12/27/24 06:28 12/27/24 06:28 12/27/24 06:28 12/27/24 06:28 Point of Care Results Point of Care Results: POC- Test(urine) Negative 12/27/24 06:52 Anesthesia Assessment and Plan Anesthesia History Personal History: No History of Anesthesia Complications Family History: No Family History of Anesthesia Complications Exercise Tolerance Exercise Tolerance: Metabolic Equivalents>4 Pertinent Negatives Pertinent Negatives: No Symptoms of GERD Cardiac & Pulmonary Exam Cardiac Exam: Normal S1/S2 Heart Sounds Pulmonary Exam: Clear Bilateral Breath Sounds Implantable Cardiac Device Does patient have a Pacemaker or an ICD?: No Airway Exam Known Difficult Airway: No Mallampati Class: 2 Mouth Opening: Normal (> 3cm) Thyromental Distance: Greater than 3 cm Neck Range of Motion: Full ROM Neck Circumference: Normal Teeth Condition: Normal Dentition ASA Classification ASA Score: ASA 2 Emergency Case?: No NPO Status NPO Status: NPO Clears >2 hours, Solids >8 hours Status Status: Negative HCG (Urine POC) Anesthesia Plan Resuscitation Status: Full Code Anesthesia Technique: General Anesthesia Airway Planned: Natural Airway Monitors Used: Standard Monitors
[2024-12-27 07:24] VITALS: BMI 29.9
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
--- NOTE | 2024-12-27 07:42 | W.PM.DSUDISC ---
Date of service: 12/27/24 Discharge Plan Disposition Patient Disposition: Home Condition: Stable Discharge Details Attending Provider: Daphney Donnelly Primary Care Provider: Rosalina Concepcion Home Meds and New Rx's Prescriptions: Continued lidocaine 4 % adhesive patch,medicated 1 patch topical DAILY PRN (Reason: pain) Qty: 30 0RF Rx Instructions: Apply 1 patch daily as directed to lower back caffine 200 mg PO .Q6 Patient Comments: For narcolepsy. prazosin 1 mg capsule 1 mg PO QHS armodafinil 200 mg tablet 100 mg PO BID ondansetron HCl 8 mg tablet 8 mg PO TID PRN (Reason: nausea and vomiting) Qty: 60 1RF dextroamphetamine-amphetamine [Adderall] 15 mg tablet 15 mg PO TID dextroamphetamine-amphetamine [Adderall] 7.5 mg tablet 7.5 mg PO DAILY PRN albuterol sulfate 90 mcg/actuation HFA aerosol inhaler 2 puff inhalation Q6H PRN (Reason: shortness of breath or wheezing) Qty: 8.5 0RF polyethylene glycol 3350 [Miralax] 17 gram/dose powder 8.5 g PO DAILY PRN ascorbic acid (vitamin C) 500 mg capsule 500 mg PO DAILY cyclobenzaprine 5 mg tablet 5 mg PO TID PRN (Reason: muscle spasm) Qty: 14 0RF sumatriptan succinate 50 mg tablet 50 mg PO ONCE MDD 2 pills PRN (Reason: migraine headache) Qty: 30 4RF Rx Instructions: Take one tab at onset of headache. May repeat in 1 hour if no relief. cholecalciferol (vitamin D3) 25 mcg (1,000 unit) capsule 25 mcg PO DAILY Unisom (doxylamine) 25 mg tablet 25 mg PO QHS PRN fexofenadine [Allergy Relief (fexofenadine)] 180 mg tablet 180 mg PO DAILY diphenhydramine HCl [Benadryl] 25 mg capsule 25 mg PO QHS PRN (Reason: sleep) cetirizine [Zyrtec] 10 mg tablet 10 mg PO DAILY lamotrigine 150 mg tablet 300 mg PO DAILY Qty: 180 3RF lorazepam 0.5 mg tablet 0.5 mg PO DIRECTED PRN Patient Comments: TAKE ONE TABLET BY MOUTH EVERY DAY NEEDED FOR SEVERE ANXIETY magnesium gluconate 27 mg magnesium (500 mg) tablet 27 mg PO DAILY acetaminophen 325 mg capsule 325 mg PO ONCE PRN Patient Comments: 3 tablets Discharge Instructions Additional Instructions: EGD today shows mild stomach lining irritation and mild esophagus irritation. No ulcers. No smoking gun finding for what might be bothering your stomach and causing stomach aches. We should treat the stomach and esophagus irritation, I sent a prescription I want you to take faithfully for 6 weeks. It will help clear up the irritation so that it doesnt progress. we will see if it reduces symptoms as well, but the goal of treatment is to heal the irritated areas. Colonoscopy is normal. Healthy colon and rectum without signs of residual or long term care pharmacist colitis. I think the episode you had was infectin and bad luck and hopefully will not happen again. I took biopsies as planned to microscopically assess the colon and rectum. Come back to office to review all results and symptoms and plan of care. May be time for us to run more lab work on you as well, we will review what has been done and see what more we can do when I see you back. If you dont have a follow up already please call the office and ask for one to be seen in 2-4 weeks. Stand Alone Forms: Anesthesia Discharge Inst., Colonoscopy Post Instructions, bEony Patel (DSU) Activity:: Activity as Tolerated Diet:: As Tolerated Discharge Orders Discharge Orders: Discharge Order (Routine); Ordered 12/27/24 Ordered By: Daphney Donnelly DS: Diagnosis Discharge Diagnosis (1) Chronic abdominal pain: Status: Acute (2) History of colitis: Status: Acute (3) Alternating constipation and diarrhea: Status: Acute
--- NOTE | 2024-12-27 07:44 | W.PM.ENDDOP ---
Date of service: 12/27/24 Time of Service: 07:59 Endoscopy Report DATE OF PROCEDURE: 12/27/24 PRE-OP DIAGNOSIS: Epigastric pain POST-OP DIAGNOSIS: same PROCEDURE: EGD with biopsy SURGEON: Daphney Donnelly ANESTHESIA TYPE: General:No Airway ESTIMATED BLOOD LOSS: 2 PATHOLOGY: other (1. duodenum biopsy. 2. antrum biopsy. ) COMPLICATIONS: None DISPOSITION: same day INDICATIONS: Evaluation of upper digestive system for chronic abdominal pain source/cause PROCEDURE DESCRIPTION: Lubricated endoscope was passed through a bite block into the second portion of the duodenum. The endoscope was withdrawn and the duodenum stomach and esophageal mucosa examined. The duodenum appeared normal. There is no inflammation or ulceration or erosion. The antrum appears mildly inflamed. The fundus appears normal . The cardia appears normal and there is no evidence of hiatal hernia upon retroflexion. The GE junction is located at 37cm from the teeth. The Z-line is irregular with mild inflammatory change. There is no evidence of Leroy's esophagus. Remainder of the esophagus appears normal Cold forceps biopsies obtained from the duodenum the antrum for microscopic evaluation for celiac sprue, H. pylori, esophagitis. The upper digestive system was desufflated and the endoscope withdrawn. No complications. Assessment and plan: Mild esophagitis Mild gastritis. No clear cause for pain symptoms. No ulceration, no mass lesions. Office follow up in 2-4 weeks. Will follow up H pylori testing and duodenal biopsy for sprue. Proceed with colonoscopy.
--- NOTE | 2024-12-27 07:48 | W.COLOREPORT ---
Date of service: 12/27/24 Time of Service: 08:23 Colonoscopy Report Pre-op diagnosis general: Colitis, bloody diarrhea (now resolved) Post-op diagnosis procedure note: same Procedure: Colonoscopy with biopsies Surgeon: Daphney Donnelly Anesthesia Type: General:No Airway Estimated blood loss (mL): 3 Pathology: none sent Complications: None Disposition: same day Prep: Miralax/Dulcolax Procedure Description: Informed consent was obtained and the patient was taken to the procedure area. The patient was placed in left lateral decubitus position on the procedure table. Timeout was performed. Anesthesia was induced. A lubricated colonoscope was inserted through the anus and passed to the cecum. The cecum was identified by the ileocecal valve and the appendiceal orifice. The scope was then slowly withdrawn and the colonic and rectal mucosa examined. TI intubated and examined. It appears normal. There are no colon or rectal mass lesions, polyps, AVMs. There is no inflammatory change. No diverticulosis was seen. Cold forceps biopsies obtained for evaluation for microscopic colitis. Biopsies obtained from terminal ileum, ascending colon, transverse colon, descending colon and rectum. The scope was retroflexed in the anorectal junction examined. Uncomplicated internal hemorrhoids present. Assessment and plan; Normal colonoscopy. Prior colitis episode likely was infectious. No evidence of IBD. Biopsies taken to rule out microscopic colitis. Office follow up planned for review of biopsy results when available. Next screening colonoscopy will be due at age 45.
--- NOTE | 2024-12-27 07:53 | BOWEL_PTH ---
PATIENT: Christel Gamble LOC: [facility] U#:[id number] AGE/SX: 34/F ROOM: RE12/27/[address]: Daphney Donnelly MD : 1990 BED: DIS: 12/27/2024 SPEC #: [id number] RECD: 12/27/24 12:44 STATUS: MICHAEL RE #: [id number] CHIQU[place]: 12/27/24 07:[address]: Daphney Donnelly DEPT: Surgical Specimen RECD BY: Any Arias ENTERED: 12/27/24 12:45 SP TYPE: Bowel OTHR DR: Rosalina Concepcion, TOP POLISHER Tissues: 1 - BIOPSY BOWEL 2 - STOMACH BIOPSY 3 - BIOPSY BOWEL 4 - BIOPSY BOWEL 5 - BIOPSY BOWEL 6 - BIOPSY BOWEL 7 - BIOPSY BOWEL Procedures: GROSS AND MICRO LEVEL 4 Comments: [id number]
[2024-12-27 08:23] VITALS: BP 112/60; PULSE 87; RESP 17; TEMP 36; O2SAT 100
--- NOTE | 2024-12-27 08:30 | W.ANESPOSTOP ---
Postoperative Evaluation Date, Time and Location Date Performed: 12/27/24 Time Performed: 08:30 Patient Location: Day Surgery Unit Vital Signs Most Recent Imported Vital Signs: Most Recent Vital Signs Temp Pulse Resp BP Pulse Ox 36.3 C L 109 H 20 120/81 96 12/27/24 06:28 12/27/24 06:28 12/27/24 06:28 12/27/24 06:28 12/27/24 06:28 Pain Score Most Recent Pain Score: Most Recent Pain Score Pain Level 0 12/27/24 06:28 Assessment Mental Status: Awake (Alert & Oriented to Patient Baseline) Airway and Respiratory Function: Patent airway with normal (patient baseline) respiratory exam Cardiovascular Function: Hemodynamically Stable Hydration Status: Adequately Hydrated Nausea & Vomiting: No Nausea or Vomiting Pain: Pt. Denies Any Pain Peripheral Nerve Block: Patient did not receive a nerve block
[2024-12-27 08:50] VITALS: BP 100/66; PULSE 72; RESP 16; TEMP 36.2; O2SAT 100
== END 2024-12-27 09:05 | disposition home or self-care (01) ==
PROVIDERS: PCP Nurse Practitioner Family; Visit Provider Surgery
PROC: 0DJD8ZZ Inspection of Lower Intestinal Tract, Via Natural or Artificial Opening Endoscopic (ICD-10-PCS; CPT 45378; principal; 2024-12-27 07:30)
DX: K52.9 Noninfective gastroenteritis and colitis, unspecified (principal); R10.9 Unspecified abdominal pain; G89.29 Other chronic pain; Z87.19 Personal history of other diseases of the digestive system; R19.8 Other specified symptoms and signs involving the digestive system and abdomen
CPT/HCPCS: 45380; 81025; 88305; J2003; J2704

== ENCOUNTER 2025-04-08 06:17 | Emergency (ER) | payer OTHER, SELFPAY ==
[2025-04-08] VITALS (13 sets, daily range): BP systolic 121; BP diastolic 64; PULSE 67–101; RESP 16–19; TEMP 36.6–36.7; O2SAT 87–100
--- NOTE | 2025-04-08 06:15 | DI.CT_ITS ---
Exam(s) CT ABDOMEN PELVIS CTA EXAM: CT ABDOMEN PELVIS CTA CLINICAL HISTORY: abd pain, diarrhea. TECHNIQUE: Imaging Protocol: Axial CT angiography was performed with multi- slice acquisition and multi-planar and/or 3D reconstructions. CONTRAST MATERIAL: Intravenous: Omnipaque 350 Contrast volume:75 ml Oral: no COMPARISON: CT CT ABDOMEN PELVIS CTA from 10/31/2024 FINDINGS: Aorta: No aneurysm. No dissection. No significant stenosis. Common iliac Arteries: No significant stenosis. No evidence of aneurysm. External iliac arteries: No significant stenosis. No evidence of aneurysm. Internal iliac arteries: No significant stenosis. No evidence of aneurysm. Common Femoral Arteries: No significant stenosis. Superficial femoral arteries: No significant stenosis. Celiac Richards:No evidence of stenosis. SMA: No evidence of stenosis. Renal Arteries: No evidence of stenosis. There is a single renal artery perfusing each kidney. SERA: Patent. Venous structures: Patent. Lung bases:No acute findings. Liver: Normal size. Normal density. No measurable mass. Gallbladder and biliary tract: No evidence of calculi. No gallbladder wall thickening. No biliary dilation. Pancreas: Normal density, no abnormal calcifications or inflammatory process. Spleen: Normal. Kidneys: Normal size, contour and axis. No obstructive uropathy. No masses seen. No evidence of calculi. Adrenal glands: No masses seen. Bladder: Nearly empty. No gross wall thickening. No evidence of calculi. No evidence of mass. Bowel: No obstruction or bowel wall thickening. Moderate quantity of stool. No evidence of appendicitis. Peritoneal cavity: No ascites. No focal collection. No mesenteric inflammatory response. Lymph nodes: Within normal limits. Reproductive: Unremarkable. Soft Tissues:Unremarkable. Bones: No acute findings. IMPRESSION: No evidence of colitis. There is moderate quantity of formed stool in the colon. No fluid or abnormal distension. The vascular structures are normal. The preliminary [facility] report was reviewed. RADIATION DOSE DELIVERED: Total DLP DATA REPOSITORY: All CT scans at this facility are submitted to the National Radiology Data Registry (NRDR) Dose Index Registry (DIR) with the [employer] (A[employer]). RADIATION OPTIMIZATION: All CT scans at this facility use at least one of these dose optimization techniques: automated exposure control; mA and/or kV adjustment per patient size (includes targeted exams where dose is matched to clinical indication); or iterative reconstruction.
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
[2025-04-08 06:32] LABS: BE (Venous) -2 mmol/L (-2-3); HCO3 (Venous) 23 mmol/L (23-28); O2 Sat (Venous) 66 %; TCO2 (Venous) 21 mmol/L (24-29); pCO2 (Venous) 40 mmHg (41-51); pO2 (Venous) 34 mmHg
[2025-04-08 06:34] LABS: Abs Immature Grans 0.04 10^3/uL (0.0-0.06); HCT 37.1 % (36.0-46.0); HGB 12.3 g/dL (11.2-15.7); Immature Grans % 0.4 %; MCH 30.7 pg (27.0-33.0); MCHC 33.2 % (32.0-36.0); MCV 93 fL (80-95); MPV 9.2 fL (8.0-11.0); Platelet Count 296 10^3/uL (130-400); RBC 4.01 10^6/uL (3.93-5.22); RDW 11.9 % (11.7-14.6); RDW-SD 40.3 fL; WBC 10.74 10^3/uL (4.4-10.8)
[2025-04-08] MEDS: Normal Saline 1,000 ML 1000 ML IV (06:36)
[2025-04-08 06:51] LABS: Lipase 33 U/L (<53)
[2025-04-08 06:53] LABS: ALT 33 U/L (10-49); AST 23 U/L (<34); Albumin 4.2 g/dL (3.2-5.0); Alkaline Phosphatase 176 U/L (46-116); Anion Gap 11.1 mmol/L (3-11); BUN 12 mg/dL (9-23); Bilirubin, Total 0.3 mg/dL (0.2-1.2); CO2 22.9 mmol/L (20.0-31.0); Calcium 9.1 mg/dL (8.3-10.6); Chloride 107 mmol/L (98-107); Glucose 128 mg/dL (74-106); Potassium 3.4 mmol/L (3.5-5.1); Sodium 141 mmol/L (136-145); Total Protein 6.7 g/dL (5.7-8.2)
[2025-04-08 07:01] LABS: HCG Qual (Serum) Negative
--- NOTE | 2025-04-08 07:30 | W.EDPROG ---
Date of service: 04/08/25 Time of Service: 07:31 Medical Decision Making I received signout on this 35-year-old female history of colitis pending CT angiogram in setting of abdominal pain elevated lactate. She is followed by general surgery. 9:[address] scan reassuring against colitis. She felt improved following IV ketorolac. I was in touch with Dr. Fernando from general surgery. He spoke with Dr. Donnelly who will see the patient this Tuesday 10:30 AM. Patient and I discussed that she should return to the ED if she developed recurrent pain could not eat or drink or if she had any other concerns. Quality:SDOH Health Related Social Needs: Health related social needs lonely/isolated Discharge Plan Disposition Patient Disposition: Home Discharge Details Clinical Impression: Acute abdominal pain, Acute lactic acidosis Primary Care Provider: Rosalina Concepcion ED Provider: Don Mccullough Home Meds and New Rx's Prescriptions: Continued lidocaine 4 % adhesive patch,medicated 1 patch topical DAILY PRN (Reason: pain) Qty: 30 0RF Rx Instructions: Apply 1 patch daily as directed to lower back caffine 200 mg PO .Q6 Patient Comments: For narcolepsy. prazosin 1 mg capsule 1 mg PO QHS PRN armodafinil 200 mg tablet 100 mg PO BID dextroamphetamine-amphetamine [Adderall] 15 mg tablet 15 mg PO BID Rx Instructions: AM&early afternoon dextroamphetamine-amphetamine [Adderall] 7.5 mg tablet 7.5 mg PO DAILY PRN Rx Instructions: late afternoon PRN albuterol sulfate 90 mcg/actuation HFA aerosol inhaler 2 puff inhalation Q6H PRN (Reason: shortness of breath or wheezing) Qty: 8.5 0RF polyethylene glycol 3350 [Miralax] 17 gram/dose powder 8.5 g PO DAILY PRN ascorbic acid (vitamin C) 500 mg capsule 500 mg PO DAILY cyclobenzaprine 5 mg tablet 5 mg PO TID PRN (Reason: muscle spasm) Qty: 14 0RF sumatriptan succinate 50 mg tablet 50 mg PO ONCE MDD 2 pills PRN (Reason: migraine headache) Qty: 30 4RF Rx Instructions: Take one tab at onset of headache. May repeat in 1 hour if no relief. cholecalciferol (vitamin D3) 25 mcg (1,000 unit) capsule 25 mcg PO DAILY Sunosi 150 mg tablet 150 mg PO DAILY pantoprazole 40 mg tablet,delayed release (DR/EC) 40 mg PO DAILY Qty: 30 11RF Unisom (doxylamine) 25 mg tablet 25 mg PO QHS PRN fexofenadine [Allergy Relief (fexofenadine)] 180 mg tablet 180 mg PO DAILY diphenhydramine HCl [Benadryl] 25 mg capsule 25 mg PO QHS PRN (Reason: sleep) cetirizine [Zyrtec] 10 mg tablet 10 mg PO DAILY lamotrigine 150 mg tablet 300 mg PO DAILY Qty: 180 3RF colestipol 1 gram tablet 1 g PO DAILY Qty: 7 0RF ondansetron HCl 8 mg tablet 8 mg PO TID PRN (Reason: nausea and vomiting) Qty: 60 1RF lorazepam 0.5 mg tablet 0.5 mg PO DIRECTED PRN Patient Comments: TAKE ONE TABLET BY MOUTH EVERY DAY NEEDED FOR SEVERE ANXIETY magnesium gluconate 27 mg magnesium (500 mg) tablet 27 mg PO DAILY acetaminophen 325 mg capsule 325 mg PO ONCE PRN Patient Comments: 3 tablets Discharge Instructions Additional Instructions: You are seen in the emergency department for your abdominal pain. Your CAT scan was reassuring against any dangerous processes. As we discussed if he developed any worsening symptoms or any other concerns please return to the emergency department. Otherwise please follow-up with general surgery this Tuesday morning at 10:30 AM. Stand Alone Forms: Portal Information, Work Release
--- NOTE | 2025-04-08 08:02 | DI.VRAD_ITS ---
PROCEDURE INFORMATION: Exam: CTA Abdomen and Pelvis With Contrast Exam date and time: 04/08/2025 7:20 AM Age: 35 years old Clinical indication: Abdominal pain; Generalized; Abd pain, diarrhea; Additional info: Prev HX of colitis possibly ischemic TECHNIQUE: Imaging protocol: Computed tomographic angiography of the abdomen and pelvis with contrast. Exam focused on the arteries. 3D rendering (Not supervised by radiologist): MIP and/or 3D reconstructed images were created by the technologist. COMPARISON: CT ABDOMEN PELVIS CTA 10/31/2024 4:35 PM FINDINGS: Aorta: No aortic aneurysm. No aortic dissection. Celiac and mesenteric arteries: No occlusion or significant stenosis. Renal arteries: No occlusion or significant stenosis. Single bilateral renal arteries. Right iliac arteries: No occlusion or significant stenosis. Left iliac arteries: No occlusion or significant stenosis. Liver: No mass. Gallbladder and biliary ducts: Unremarkable. No calcified stones. No ductal dilation. Pancreas: Unremarkable. No mass. No ductal dilation. Spleen: Unremarkable. No splenomegaly. Adrenal glands: Unremarkable. No mass. Kidneys and ureters: Unremarkable. No solid mass. No hydronephrosis. Stomach and bowel: Unremarkable. No obstruction. No mucosal thickening. Appendix: Appendix unable to be delineated, however no inflammatory changes noted in the expected region of the appendix. Intraperitoneal space: Unremarkable. No free air. No significant fluid collection. Lymph nodes: Unremarkable. No enlarged lymph nodes. Urinary bladder: Urinary bladder collapsed, limiting evaluation. Reproductive: A 1.5 cm left ovarian cyst demonstrates a thickened crenulated vascular rim, consistent with an involuting corpus luteum. Otherwise unremarkable reproductive structures. Bones/joints: No acute or suspicious osseous abnormalities. [id number] narrowing of the L3-L4 and L5-S1 intervertebral disc spaces. Soft tissues: Unremarkable. IMPRESSION: 1. No acute process identified in the abdomen or pelvis. 2. Left ovarian involuting corpus luteum cyst. Dictated and Authenticated by: Kourntey Aguayo MD. Orderin Tobias Lawrence MD
[2025-04-08] MEDS: Ketorolac 15 MG/ML VIAL IVP (08:09)
== END 2025-04-08 09:49 | disposition home or self-care (01) ==
PROVIDERS: Emergency Medicine; Emergency Provider Emergency Medicine; PCP Nurse Practitioner Family
DX: R19.7 Diarrhea, unspecified; R11.0 Nausea; Z60.8 Other problems related to social environment; E87.21 Acute metabolic acidosis; R10.84 Generalized abdominal pain
CPT/HCPCS: 00123; 80053; 82805; 83690; 86850; 86900; 86901; 96361; 96374; 99285; 74174; 83605; 84703; 85025; 99283; J1885